=== PATIENT | female | born 1980 | race Caucasian/White ===

== ENCOUNTER 2019-05-29 09:04 | Emergency (ER) | payer BC ==
--- NOTE | 2019-05-29 10:07 | EDM.PDOC ---
ED HPI GENERAL MEDICAL PROBLEM - General Chief Complaint: ENT Problem Stated Complaint: PAIN BEHIND EAR ON JAW Time Seen by Provider: 05/29/19 09:49 Source of Information: Reports: Patient History Limitations: Reports: No Limitations - History of Present Illness INITIAL COMMENTS - FREE TEXT/NARRATIVE: Ms. Madrigal is a very pleasant 38-year-old woman with no chronic medical issues, but who is status post 13 bilateral myringotomy tubes +3 left ear reconstructions, who states that 2 weeks ago she had a common head cold. 1 week ago she developed pain felt in the fossa inferior to her left mastoid process, which radiated into her jaw. Her pain was not made worse with chewing. The pain waxes and wanes, and is made better with holding cold water in her mouth, otherwise, she has not identified any modifiers. She states that she was seen at the walk-in clinic last 05/21/2019. No abnormalities, other than TM scarring, were seen, however, she was prescribed doxycycline and a Medrol Dosepak, which she finished. She got no better, therefore she saw her PCP this past 05/26/2019. Again no acute abnormalities were seen, but she was prescribed a 7-day course of Levaquin 500 mg, which she is still on. She then saw a chiropractor, who performed an adjustment. She states that she got worse, therefore she went to her dentist, who performed dental x-rays, all of which were normal. She now presents to the ED because of continuing pain. She states that she has been taking [id number] Tylenol and ibuprofen, without adequate relief. No prior similar symptoms. The patient's PCP is Dr. Franky Carcamo. Her Blood Bank Worker is Dr. Margaux Tran. She received an influenza vaccine in December. Left Ear Pain Score (Numeric/FACES): 10 - Related Data Allergies Allergy/AdvReac Type Severity Reaction Status Date / Time cephalexin monohydrate Allergy Cannot Verified 05/29/19 09:19 [From Keflex] Remember clarithromycin [From Biaxin] Allergy Rash Verified 05/29/19 09:19 erythromycin base Allergy Rash Verified 05/29/19 09:19 [Erythromycin Base] codeine AdvReac Vomiting Verified 05/29/19 09:19 Penicillins AdvReac Vomiting Verified 05/29/19 09:19 Sulfa (Sulfonamide AdvReac Vomiting Verified 05/29/19 09:19 Antibiotics) Home Meds: Home Meds L.acidoph,Paracasei, B.lactis [Probiotic] 1 cap PO DAILY 01/16/15 [History] PNV95/Ferrous Fumarate/FA [ Multivitamins] 1 tab PO DAILY 01/16/15 [ History] Ascorbic Acid [Vitamin C] 500 mg PO DAILY 02/12/18 [History] Ergocalciferol (Vitamin D2) [Vitamin D2] 50,000 unit PO [place] 02/12/18 [History] Meclizine [Antivert] 25 mg PO Q4H PRN 02/12/18 [History] Ondansetron HCl [Zofran] 4 mg PO Q4H PRN 02/12/18 [History] Acetaminophen/oxyCODONE [Percocet 325-5 MG] 1 - 2 each PO Q6H PRN #20 tab [Rx] Acetaminophen/HYDROcodone [Crosby 325-5 MG] 1 - 2 tab PO Q6H PRN #14 tablet 05/28 [Rx] Past Medical History HEENT History: Reports: Impaired Vision - Infectious Disease History Infectious Disease History: Reports: Chicken Pox - Past Surgical History HEENT Surgical History: Reports: Myringotomy w Tube(s) (bilateral, x 13), Naso- Sinus Surgery (deviated septum), Oral Surgery (wisdom teeth extraction), Tonsillectomy, Other (See Below) (Left ear reconstruction x 3) GI Surgical History: Reports: Hernia, Abdominal (periumbilical) Female Surgical History: Reports: Hysterectomy (partial) Social & Family History - Tobacco Use Smoking Status *Q: Never Smoker Second Hand Smoke Exposure: No - Caffeine Use Caffeine Use: Reports: None - Alcohol Use Alcohol Use History: No - Recreational Drug Use Recreational Drug Use: No - Living Situation & Occupation Living situation: Reports: , with Spouse, with Family (2 sons) Occupation: Employed (Dairy farm) ED ROS ENT - Review of Systems Review Of Systems: Comprehensive ROS is negative, except as noted in HPI. ED EXAM, ENT - Physical Exam Exam: See Below Exam Limited By: No Limitations General Appearance: Alert, WD/WN, No Apparent Distress Eye Exam: Bilateral Eye: EOMI, Normal Inspection Ears: Normal External Exam, Normal Canal, Hearing Grossly Normal, Other ( Scarring noted to both TMs, Lt > Rt. No other visible abnormalities. No pain on tugging of the left auricle. No pain to the left mastoid process or fossa inferior to the mastoid process, where the patient's pain is primarily felt.). No: TM Bulging, TM Dullness, TM Erythema, TM Blood, TM Fluid, TM Perforation Nose: Normal Inspection, Normal Mucousa, No Blood Mouth/Throat: Normal Inspection, Normal Gums, Normal Lips, Normal Oropharynx, Normal Teeth Head: Atraumatic Neck: Normal Inspection, Supple, Non-Tender, Full Range of Motion. No: Lymphadenopathy (L), Lymphadenopathy (R) Course - Vital Signs Last Recorded V/S: Last Vital Signs Temp 36.1 C 05/29/19 09:15 Pulse 67 05/29/19 09:15 Resp 20 05/29/19 09:15 BP 154/105 H 05/29/19 09:15 Pulse Ox 100 05/29/19 09:15 - Re-Assessments/Exams Free Text/Narrative Re-Assessment/Exam: 05/29/19 10:02 The cause of the pain felt behind the patient's left ear is not immediately clear. Other than scarring, I do not see any acute inflammatory process in either ear. There is no tenderness to palpation of the painful area, and the patient denies pain associated with chewing, therefore TMJ is unlikely. The painful process she describes is not consistent with trigeminal neuralgia, however, I do suspect that her pain is caused by irritation of 1 of the 3 that serve the tympanic membrane. My recommendation is that she see an ENT to see if they can determine the cause, then have them refer her for a CT or MRI if they feel it indicated. Alternatively, we could perform a CT scan today, however, that would involve radiation that may prove unnecessary. The patient prefers to see ENT first. In the meantime, the patient is requesting pain medication, however, is unable to explain why she was not prescribed an opioid by either Dr. Carcamo or at the walk-in clinic. 05/29/19 10:[address] Franky Carcamo at 10:17. He has no objection if I write for some Crosby. Departure - Departure Time of Disposition: 10:19 Disposition: Home, Self-Care 01 Condition: Good Clinical Impression: Pain of left ear structure - Discharge Information *PRESCRIPTION DRUG MONITORING PROGRAM REVIEWED*: Not Applicable *COPY OF PRESCRIPTION DRUG MONITORING REPORT IN PATIENT RICHARD: Not Applicable Prescriptions: Acetaminophen/HYDROcodone [Crosby 325-5 MG] 1 - 2 tab PO Q6H PRN #14 tablet PRN Reason: Pain (Severe 7-10) Referrals: Franky Carcamo MD [Primary Care Provider] - Margaux Tran MD [Physician] - Damon Flor MD [Ordering Only Provider] - Forms: ED Department Discharge Additional Instructions: You were seen in the emergency room for 1 week of pain felt behind your left ear , not improved despite 2 courses of antibiotics and a Medrol dose pack. The cause of your pain is not immediately clear. In addition to ibuprofen, you been prescribed the opioid pain reliever Crosby. You may take 1 to 2 tablets of Crosby up to every 6 hours, as pain not relieved by ibuprofen. If you take Crosby, do not drive or operate heavy machinery for 12 hours afterwards. Crosby may cause constipation, so consider taking a stool softener. Follow-up with the ENT Dr. Damon Flor at the next available appointment, for further evaluation. If any other problems, please do not hesitate to return to the ER. Sepsis Event Note - Evaluation Sepsis Screening Result: No Definite Risk - Focused Exam Vital Signs: Vital Signs Temp Pulse Resp BP Pulse Ox 05/29/19 09:15 36.1 C 67 20 154/105 H 100 Date Exam was Performed: 05/29/19 Time Exam was Performed: 10:18
== END 2019-05-29 10:43 | disposition home or self-care (01) ==
LOC: JD.ED 09:04
CPT/HCPCS: 99283

== ENCOUNTER → 2020-09-02 | Day surgery (SDC) | payer BC ==
--- NOTE | 2020-09-01 10:36 | PCM.PREANE ---
Preanesthetic Assessment - Procedure Proposed Procedure: Right Carpal Tunnel Release - Anesthesia/Transfusion/Family Hx Anesthesia History: Prior Anesthesia Reaction Type of Anesthesia Reaction: Excessive Nausea/Vomiting Family History of Anesthesia Reaction: No Transfusion History: No Prior Transfusion(s) Intubation History: Unknown - Review of Systems Pulmonary: Cough Gastrointestinal: Nausea Other: Reports: Sinus Problem (allergic rhinitis), Depression - Physical Assessment NPO Status Date: 09/01/20 Vital Signs: HR: Sat: Temp: B/P: Resp: Height: 1.68 m ASA Class: 3 Mental Status: Alert & Oriented x3 - Allergies Allergies/Adverse Reactions: Allergies Allergy/AdvReac Type Severity Reaction Status Date / Time cephalexin monohydrate Allergy Cannot Verified 05/29/19 09:19 [From Keflex] Remember clarithromycin [From Biaxin] Allergy Rash Verified 05/29/19 09:19 erythromycin base Allergy Rash Verified 05/29/19 09:19 [Erythromycin Base] codeine AdvReac Vomiting Verified 05/29/19 09:19 Penicillins AdvReac Vomiting Verified 05/29/19 09:19 Sulfa (Sulfonamide AdvReac Vomiting Verified 05/29/19 09:19 Antibiotics) - Anesthesia Plan Pre-Op Medication Ordered: Other (Scopalamine patch 1.5mg @) - Acknowledgements Anesthesia Type Planned: MAC Pt an Appropriate Candidate for the Planned Anesthesia: Yes Alternatives and Risks of Anesthesia Discussed w Pt/Guardian: Yes Pt/Guardian Understands and Agrees with Anesthesia Plan: Yes PreAnesthesia Questionnaire - Past Health History Medical/Surgical History: Denies Medical/Surgical History HEENT History: Reports: Impaired Vision Cardiovascular History: Reports: None Respiratory History: Reports: None Gastrointestinal History: Reports: Other (See Below) Other Gastrointestinal History: UMBILICAL HERNIA Genitourinary History: Reports: None, UTI, Recurrent MOVERS History: Reports: Polycystic Ovaries, Other Musculoskeletal History: PLANTAR FASCIITIS Neurological History: Reports: None Psychiatric History: Reports: None Endocrine/Metabolic History: Reports: None Hematologic History: Reports: None Immunologic History: Reports: None Oncologic (Cancer) History: Reports: None Dermatologic History: Reports: None - Infectious Disease History Infectious Disease History: Reports: Chicken Pox - Past Surgical History HEENT Surgical History: Reports: Myringotomy w Tube(s) (bilateral, x 13), Naso- Sinus Surgery (deviated septum), Oral Surgery (wisdom teeth extraction), Tonsillectomy, Other (See Below) (Left ear reconstruction x 3) GI Surgical History: Reports: Hernia, Abdominal (periumbilical) Female Surgical History: Reports: Hysterectomy (partial) - HOME MEDS Home Medications: Home Meds L.acidoph,Paracasei, B.lactis [Probiotic] 1 cap PO DAILY 01/16/15 [History] PNV95/Ferrous Fumarate/FA [ Multivitamins] 1 tab PO DAILY 01/16/15 [History] Ascorbic Acid [Vitamin C] 500 mg PO DAILY 02/12/18 [History] Ergocalciferol (Vitamin D2) [Vitamin D2] 50,000 unit PO [place] 02/12/18 [History] Meclizine [Antivert] 25 mg PO Q4H PRN 02/12/18 [History] ondansetron HCL [Zofran] 4 mg PO Q4H PRN 02/12/18 [History] Acetaminophen/oxyCODONE [Percocet 325-5 MG] 1 - 2 each PO Q6H PRN #20 tab 02/13/18 [Rx] Acetaminophen/HYDROcodone [[place] 325-5 MG] 1 - 2 tab PO Q6H PRN #14 tablet 05/29/19 [Rx] - CURRENT (IN HOUSE) MEDS Current Meds: Current Medications Lactated Ringer's (Ringers, Lactated) 1,000 mls @ 125 mls/hr IV ASDIRECTED JOSE MANUEL Stop: 09/02/20 23:00 Lidocaine/Sodium Bicarbonate (Lidocaine 1%/Sod Bicarbonate In Ns 8.4% 1 Ml Syringe) 0.25 ml IDERM ONETIME PRN PRN Reason: Prior to IV Start Stop: 09/02/20 18:00 Sodium Chloride (Sodium Chloride 0.9% 10 Ml Syringe) 10 ml FLUSH ASDIRECTED PRN PRN Reason: Keep Vein Open Stop: 09/02/20 18:00
[~2020-09-02] MED LIST: HYDROmorphone 0.5 MG/0.5 ML Syringe IVPUSH PRN; Lactated Ringers 1,000 ML IV SCH; Lidocaine 1% 30 ML SDV ONE; Lidocaine 1% 4 ML ONE; Lidocaine 1%/Sod Bicarbonate in NS 8.4% 1 ML Syringe IDERM PRN; Midazolam 1 MG/ML 2 ML SDV ONE; Ondansetron 4 MG/2 ML SDV IVPUSH PRN; Ondansetron 4 MG/2 ML SDV ONE; Propofol 200 MG/20 ML SDV ONE; Scopolamine 1.5 MG Transdermal Patch TRDERM PRN; Sodium Chloride 0.9% 10 ML Syringe FLUSH PRN; Triamcinolone Acetonide 40 MG/ML 1 ML SDV ONE; diphenhydrAMINE 50 MG/ML SDV IVPUSH PRN; ePHEDrine 50 MG/ML SDV IVPUSH PRN; fentaNYL 100 MCG/2 ML SDV IVPUSH PRN; fentaNYL 100 MCG/2 ML SDV ONE
--- NOTE | 2020-09-02 07:58 | PCM.PREANE ---
Preanesthetic Assessment - Procedure Proposed Procedure: Right carpal tunnel release - Anesthesia/Transfusion/Family Hx Anesthesia History: Prior Anesthesia Reaction Family History of Anesthesia Reaction: No Transfusion History: No Prior Transfusion(s) Intubation History: Unknown - Review of Systems General: Other (allergies "this morning") Pulmonary: No Symptoms Cardiovascular: No Symptoms Gastrointestinal: No Symptoms Neurological: Numbness (both hands) Other: Reports: Sinus Problem (allergic rhinitis) - Physical Assessment NPO Status Date: 09/01/20 NPO Status Time: 20:00 Height: 1.68 m Weight: 99 kg ASA Class: 2 Mental Status: Alert & Oriented x3 Airway Class: Mallampati = 1 Dentition: Reports: [place](s) Thyro-Mental Finger Breadths: 3 Mouth Opening Finger Breadths: 3 ROM/Head Extension: Full Lungs: Clear to Auscultation, Normal Respiratory Effort Cardiovascular: Regular Rate, Regular Rhythm - Allergies Allergies/Adverse Reactions: Allergies Allergy/AdvReac Type Severity Reaction Status Date / Time cephalexin monohydrate Allergy Cannot Verified 09/01/20 14:10 [From Keflex] Remember clarithromycin [From Biaxin] Allergy Rash Verified 09/01/20 14:10 erythromycin base Allergy Rash Verified 09/01/20 14:10 [Erythromycin Base] codeine AdvReac Vomiting Verified 09/01/20 14:10 Penicillins AdvReac Vomiting Verified 09/01/20 14:10 Sulfa (Sulfonamide AdvReac Vomiting Verified 09/01/20 14:10 Antibiotics) - Anesthesia Plan Pre-Op Medication Ordered: None - Acknowledgements Anesthesia Type Planned: MAC Pt an Appropriate Candidate for the Planned Anesthesia: Yes Alternatives and Risks of Anesthesia Discussed w Pt/Guardian: Yes Pt/Guardian Understands and Agrees with Anesthesia Plan: Yes PreAnesthesia Questionnaire - Past Health History Medical/Surgical History: Denies Medical/Surgical History HEENT History: Reports: Impaired Vision Cardiovascular History: Reports: None Respiratory History: Reports: None Gastrointestinal History: Reports: Other (See Below) Other Gastrointestinal History: UMBILICAL HERNIA Genitourinary History: Reports: None, UTI, Recurrent FRAME ALIGNER History: Reports: Polycystic Ovaries, Other Musculoskeletal History: PLANTAR FASCIITIS Neurological History: Reports: None Psychiatric History: Reports: None Endocrine/Metabolic History: Reports: None Hematologic History: Reports: None Immunologic History: Reports: None Oncologic (Cancer) History: Reports: None Dermatologic History: Reports: None - Infectious Disease History Infectious Disease History: Reports: Chicken Pox - Past Surgical History Head Surgeries/Procedures: Reports: None HEENT Surgical History: Reports: Myringotomy w Tube(s), Naso-Sinus Surgery, Oral Surgery, Tonsillectomy, Other (See Below) Cardiovascular Surgical History: Reports: None Respiratory Surgical History: Reports: None GI Surgical History: Reports: Hernia, Abdominal Female Surgical History: Reports: Hysterectomy Male Surgical History: Reports: None Endocrine Surgical History: Reports: None Neurological Surgical History: Reports: None Musculoskeletal Surgical History: Reports: None Oncologic Surgical History: Reports: None Dermatological Surgical History: Reports: None - SUBSTANCE USE Tobacco Use Status *Q: Never Tobacco User Tobacco Use Within Last Twelve Months: No Second Hand Smoke Exposure: No Days Per Week of Alcohol Use: 0 Number of Drinks Per Day: 0 Total Drinks Per Week: 0 Recreational Drug Use History: No - HOME MEDS Home Medications: Home Meds L.acidoph,Paracasei, B.lactis [Probiotic] 1 cap PO DAILY 01/16/15 [History] PNV95/Ferrous Fumarate/FA [ Multivitamins] 1 tab PO DAILY 01/16/15 [History] Ascorbic Acid [Vitamin C] 500 mg PO DAILY 02/12/18 [History] Ergocalciferol (Vitamin D2) [Vitamin D2] 50,000 unit PO [place] 02/12/18 [History] Meclizine [Antivert] 25 mg PO Q4H PRN 02/12/18 [History] ondansetron HCL [Zofran] 4 mg PO Q4H PRN 02/12/18 [History] Escitalopram Oxalate [Lexapro] 10 mg PO DAILY 09/01/20 [History] Hydrocodone/Acetaminophen [Hydrocodone-Acetamin 5-325 mg] 1 - 2 each PO Q6H PRN #6 tablet 09/01/20 [Rx] - CURRENT (IN HOUSE) MEDS Current Meds: Current Medications Lactated Ringer's (Ringers, Lactated) 1,000 mls @ 125 mls/hr IV ASDIRECTED JOSE MANUEL Stop: 09/02/20 23:00 Lidocaine/Sodium Bicarbonate (Lidocaine 1%/Sod Bicarbonate In Ns 8.4% 1 Ml Syringe) 0.25 ml IDERM ONETIME PRN PRN Reason: Prior to IV Start Stop: 09/02/20 18:00 Scopolamine (Scopolamine 1.5 Mg Transdermal Patch) 1.5 mg TRDERM ONETIME PRN PRN Reason: PONV Stop: 09/02/20 16:00 Sodium Chloride (Sodium Chloride 0.9% 10 Ml Syringe) 10 ml FLUSH ASDIRECTED PRN PRN Reason: Keep Vein Open Stop: 09/02/20 18:00 Discontinued Medications Fentanyl (Fentanyl 100 Mcg/2 Ml Sdv) Confirm Administered Dose 100 mcg .ROUTE .STK-MED ONE Stop: 09/02/20 06:22 Lidocaine HCl (Xylocaine-Mpf 1%) Confirm Administered Dose 4 mls @ as directed .ROUTE .STK-MED ONE Stop: 09/02/20 06:21 Midazolam HCl (Midazolam 1 Mg/Ml 2 Ml Sdv) Confirm Administered Dose 2 mg .ROUTE .STK-MED ONE Stop: 09/02/20 06:22 Propofol (Propofol 200 Mg/20 Ml Sdv) Confirm Administered Dose 200 mg .ROUTE .STK-MED ONE Stop: 09/02/20 06:22
[2020-09-02] MEDS: Bupivacaine 0.25% 10 ML SDV ONE ×2 (08:52→08:56)
--- NOTE | 2020-09-02 09:13 | PCM48HPAN ---
Post Anesthesia Note - EVALUATION WITHIN 48HRS OF ANESTHETIC Vital Signs in Normal Range: Yes Patient Participated in Evaluation: Yes Respiratory Function Stable: Yes Airway Patent: Yes Cardiovascular Function Stable: Yes Hydration Status Stable: Yes Pain Control Satisfactory: Yes Nausea and Vomiting Control Satisfactory: Yes Mental Status Recovered: Yes Vital Signs: Last Vital Signs Temp 97.5 09/02/20 0903 Pulse 62 09/02/20 0903 Resp 10 09/02/20 09 BP 124/65 09/02/20 09 Pulse Ox 95% 09/02/20 09
[2020-09-02 10:56] VITALS: BP 114/72; PULSE 61
--- NOTE | 2020-09-20 07:40 | PCM.OPNOTE ---
- General Post-Op/Procedure Note Date of Surgery/Procedure: 09/02/20 Operative Procedure(s): right carpal tunnel release with left carpal tunnel injection Pre Op Diagnosis: bilateral median nerve compression neuropathy Post-Op Diagnosis: Same Anesthesia Technique: Local, MAC Primary Surgeon: Feliciano Velasquez Anesthesia Provider: Ene Morrison Anesthesiology Technologist: Xiomara Zaldivar in mLs: 5 Complications: None Condition: Good
--- NOTE | 2020-09-20 08:18 | OR ---
DATE OF OPERATION: 09/02/2020 SURGEON: Feliciano Velasquez MD OPERATION PERFORMED: Right carpal tunnel release with left carpal tunnel injection. PREOPERATIVE DIAGNOSIS: Bilateral median nerve compression neuropathy. POSTOPERATIVE DIAGNOSIS: Bilateral median nerve compression neuropathy. ANESTHESIA: Local MAC. ANESTHESIA PROVIDER: Ene Morrison CRNA SCRAPER TENDER: Xiomara Zaldivar PA-C ESTIMATED BLOOD LOSS: Less than 5 mL. COMPLICATIONS: None. CONDITION: Stable. DESCRIPTION OF PROCEDURE: The patient was identified in the preop holding area. Proper site was marked and identified by the surgeon. The patient was taken back to the operating theater where after adequate anesthesia, the patient's right upper extremity was sterilely prepped and draped in the usual sterile fashion. OR time-out was performed. The patient did not receive antibiotics and it is not indicated for soft tissue hand procedure. At this time, the right upper extremity was exsanguinated and an Esmarch was used as a tourniquet on the forearm. At this time, using 1% lidocaine without epinephrine and 0.25% Marcaine without epinephrine, the palmar cutaneous branch of the median nerve was anesthetized and then the incisional site was anesthetized using Wilson cardinal line and ulnar border of the fourth digit as reference. Once this had set up, an incision was made. Blunt dissection was taken down to the palmar cutaneous fascia. Palmar cutaneous fascia was incised with a [place] blade. At this time, the transverse carpal ligament was identified. A small rent was made in the transverse carpal ligament with a [place] blade under direct visualization. Resection of the transverse carpal ligament was done distally using tenotomy scissors making sure to stop short of the palmar arch. At this time, attention was turned proximally after it was found to be adequately released. Using the tenotomy scissors keeping the tips ulnar to protect the palmar cutaneous branch of the median nerve, the superficial forearm fascia as well as the transverse carpal ligament were resected proximally. It was found to be adequate release both proximally and distally. At this time, adequate saline was irrigated through the wound. 4-0 nylon sutures were used closure of the skin. The patient was placed in a sterile soft dressing and sent to PACU in stable condition. After this was completed, under sterile technique, 1 mL of 40 mg Kenalog and 2 mL of 0.25% Marcaine were injected in left carpal tunnel. The patient tolerated all procedures well. YOHANNES /[id number]
== END | disposition home or self-care (01) ==
LOC: JD.SDS 07:48
PROVIDERS: ATTEND Orthopaedic Surgery
DX: G56.13 Other lesions of median nerve, bilateral upper limbs (principal); G56.03 Carpal tunnel syndrome, bilateral upper limbs; Z79.899 Other long term (current) drug therapy; Z88.0 Allergy status to penicillin; Z88.5 Allergy status to narcotic agent; Z88.8 Allergy status to other drugs, medicaments and biological substances; Z88.2 Allergy status to sulfonamides; Z98.890 Other specified postprocedural states
CPT/HCPCS: 20526; 64721; A9270; J2250; J2405; J2704; J3010; J3301; J3490; J7120; 01810

== ENCOUNTER 2023-03-01 08:15 | Day surgery (SDC) | payer BC ==
[~2023-03-01 08:15] MED LIST changes: -HYDROmorphone 0.5 MG/0.5 ML Syringe IVPUSH PRN; -Lidocaine 1% 30 ML SDV ONE; -Lidocaine 1% 4 ML ONE; -Lidocaine 1%/Sod Bicarbonate in NS 8.4% 1 ML Syringe IDERM PRN; -Midazolam 1 MG/ML 2 ML SDV ONE; -Ondansetron 4 MG/2 ML SDV IVPUSH PRN; -Ondansetron 4 MG/2 ML SDV ONE; -Propofol 200 MG/20 ML SDV ONE; -Scopolamine 1.5 MG Transdermal Patch TRDERM PRN; +Sodium Chloride 0.9% 10 ML Syringe FLUSH SCH; -Triamcinolone Acetonide 40 MG/ML 1 ML SDV ONE; -diphenhydrAMINE 50 MG/ML SDV IVPUSH PRN; -ePHEDrine 50 MG/ML SDV IVPUSH PRN; -fentaNYL 100 MCG/2 ML SDV IVPUSH PRN; -fentaNYL 100 MCG/2 ML SDV ONE
[2023-03-01] MEDS ORDERED: Bupivacaine 0.25% 10 ML SDV ONE (08:53)
[2023-03-01] MEDS ORDERED: EPINEPHrine 1 MG/ML SDV ONE (08:53)
[2023-03-01] MEDS ORDERED: VANCOmycin 1.5 GM/300 ML 1.5 GM in Premix Bag 1 BAG IV ONE (09:15)
[2023-03-01] MEDS ORDERED: Midazolam 1 MG/ML 2 ML SDV ONE (09:19)
[2023-03-01] MEDS ORDERED: fentaNYL 100 MCG/2 ML SDV ONE (09:19)
[2023-03-01] MEDS ORDERED: Lidocaine 1% 4 ML ONE (09:19)
[2023-03-01] MEDS ORDERED: ceFAZolin 2 GM Vial ONE (09:20)
[2023-03-01] MEDS ORDERED: Propofol 200 MG/20 ML SDV ONE ×2 (09:20)
[2023-03-01] MEDS ORDERED: Scopalamine 1mg/3day Transdermal Patch TOP ONE (09:42)
[2023-03-01] MEDS ORDERED: Ondansetron 4 MG/2 ML SDV IVPUSH PRN (09:43)
[2023-03-01] MEDS ORDERED: fentaNYL 100 MCG/2 ML SDV IVPUSH PRN (09:43)
[2023-03-01] MEDS ORDERED: HYDROmorphone 0.5 MG/0.5 ML Syringe IVPUSH PRN (09:43)
[2023-03-01] MEDS ORDERED: Ondansetron 4 MG/2 ML SDV ONE (10:39)
[2023-03-01] MEDS ORDERED: Dexamethasone 4 MG/ML 5 ML MDV ONE (10:39)
[2023-03-01] MEDS ORDERED: Ketorolac 30 MG/ML SDV ONE (10:39)
[2023-03-01] MEDS ORDERED: Acetaminophen/HYDROcodone 325-5 MG Tab PO PRN (11:32)
[2023-03-01 14:02] VITALS: BP 134/79; PULSE 65
== END 2023-03-01 13:45 | disposition home or self-care (01) ==
LOC: JD.SDS 08:15
PROVIDERS: ATTEND Orthopaedic Surgery
DX: S83.241A Other tear of medial meniscus, current injury, right knee, initial encounter (principal); Z79.82 Long term (current) use of aspirin; Z79.899 Other long term (current) drug therapy; Z88.0 Allergy status to penicillin; Z88.2 Allergy status to sulfonamides; Z88.1 Allergy status to other antibiotic agents; Z88.5 Allergy status to narcotic agent; X58.XXXA Exposure to other specified factors, initial encounter
CPT/HCPCS: 29881; A9270; J0171; J1100; J1885; J2250; J2405; J2704; J3010; J3370; J3490; J7120; 01400; J0690

== ENCOUNTER 2023-03-14 05:45 | Day surgery (SDC) | payer BC ==
[2023-03-14] MEDS ORDERED: fentaNYL 100 MCG/2 ML SDV ONE (06:05)
[2023-03-14] MEDS ORDERED: Midazolam 1 MG/ML 2 ML SDV ONE (06:05)
[2023-03-14] MEDS ORDERED: Lidocaine 1% 5 ML VIAL ONE (06:05)
[2023-03-14] MEDS ORDERED: Propofol 200 MG/20 ML SDV ONE (06:05)
[2023-03-14] MEDS ORDERED: Ondansetron 4 MG/2 ML SDV ONE (06:05)
[2023-03-14] MEDS ORDERED: Scopalamine 1mg/3day Transdermal Patch TOP ONE (06:11)
[2023-03-14] MEDS ORDERED: Bupivacaine 0.25% 10 ML SDV ONE (06:12)
[2023-03-14] MEDS ORDERED: Lidocaine 1% 30 ML SDV ONE (06:12)
[2023-03-14] MEDS ORDERED: Lidocaine 1% 10 ML MDV ONE ×2 (06:14→06:17)
[2023-03-14] MEDS ORDERED: Ketorolac 30 MG/ML SDV ONE (07:00)
[2023-03-14 10:22] VITALS: BP 104/69; PULSE 48
== END 2023-03-14 08:03 | disposition home or self-care (01) ==
LOC: JD.SDS 05:45
PROVIDERS: ATTEND Orthopaedic Surgery
DX: G56.02 Carpal tunnel syndrome, left upper limb (principal); S83.204D Other tear of unspecified meniscus, current injury, left knee, subsequent encounter; Z79.899 Other long term (current) drug therapy; Z88.8 Allergy status to other drugs, medicaments and biological substances; Z88.2 Allergy status to sulfonamides; Z01.818 Encounter for other preprocedural examination
CPT/HCPCS: 15851; 64721; A9270; J1885; J2250; J2405; J2704; J3010; J3490; J7120